=== PATIENT | male | born 1985 | race Caucasian/White ===

== ENCOUNTER → 2017-08-16 14:53 | Outpatient (CLI) | payer BC, SELFPAY ==
--- NOTE | 2017-08-16 15:04 | XR_ITS ---
XR chest 2V HISTORY: ITS.REASON: COUGH, CHILLS,FEVER ORDERING PHYSICIAN: Anson Vieyra MD PATIENT AGE: 31 years COMPARISON: 05/13/2016 FINDINGS: The cardiomediastinal silhouette and pulmonary vascularity are within normal limits. The lungs are clear without infiltrates, suspicious nodules, or pleural effusions. No acute bony abnormalities. IMPRESSION: Negative chest, no acute finding
== END ==
PROVIDERS: PCP Internal Medicine Adolescent Medicine; Visit Provider Internal Medicine Adolescent Medicine
DX: R05 Cough (principal); R50.9 Fever, unspecified
CPT/HCPCS: 71046

== ENCOUNTER 2018-09-12 15:30 | Outpatient (RCR) | payer BC, SELFPAY ==
--- NOTE | 2018-09-02 09:44 | [facility].PTOPEV ---
PT Outpatient Evaluation Rehab PT Outpatient Evaluation Start: 09/02/18 09:18 Freq: Status: Active Protocol: Document 09/02/18 09:18 CHELSEA (Rec: 09/02/18 09:44 CHELSEA [id number]) Electronically Signed By Wenceslao Alvarez, PT 09/02/18 09:18 Outpatient Therapy Subjective History Subjective History Pt reports insidious LBP beginning in 2017. Pt reports pain and s/s progressed w/radicular s/s down L LE to toes. Pt reports recent MRI has revealed 'two severely herniated discs in my low back'. Pt reports intermittent episodes of weakness in L LE as well. Chief Complaint Pain Paresthesia Weakness Symptom Type Ache Throb Sharp Dull Stabbing Burning Numbness Tingling Shooting Symptoms Relieved By Prescription Meds Symptoms Aggravated By Sitting Standing Bending/Stooping Physical Activity Walking Lifting Prior Functional Limitations Lifting Housework Current Functional Limitations Lifting Housework Standing Sitting Walking Bending/Stooping Symptom Description Constant but Variable Level of pain today (0-10) 8 Pain scale - at its best (0-10) 7 Pain scale - at its worst (0-10) 10 Lumbopelvic Eval Posture Thoracic Spine Posture Standing Position Neutral Lumbar Spine Posture Standing Position Flattened Assistive device Assistive Devices None / NA Gait Observation General Gait Pattern Observation Antalgic Gait Palapation tenderness left lumbar spinal tenderness Yes: 2/4 paraspinal tenderness Yes: 3/4 buttock tenderness Yes: 3/4 Lumbar/Sacral Palpation Findings Tenderness Muscle Guarding Accessory Movement L-spine Vertebrae Accessory Movements Central P/A Bruni that Elicit Symptoms L4 left L5
== END 2018-09-12 15:35 | disposition home or self-care (01) ==
LOC: PT 15:30
PROVIDERS: Visit Provider Internal Medicine Adolescent Medicine
DX: M54.42 Lumbago with sciatica, left side (principal)
CPT/HCPCS: 97010; 97012; 97014; 97110; 97163; G0283

== ENCOUNTER → 2021-09-16 19:36 | Outpatient (CLI) | payer BC, SELFPAY ==
[2021-09-16 19:54] LABS: Coronavirus 19, PCR Not Detected (NotDetected); Influenza A, PCR Not Detected (NotDetected); Influenza B, PCR Not Detected (NotDetected)
== END ==
PROVIDERS: PCP Internal Medicine Adolescent Medicine; Visit Provider Internal Medicine Adolescent Medicine
DX: Z20.822 Contact with and (suspected) exposure to COVID-19 (principal)
CPT/HCPCS: C9803; U0003; U0005

== ENCOUNTER → 2021-12-28 18:09 | Outpatient (CLI) | payer BC, SELFPAY | PROVIDERS: PCP Internal Medicine Adolescent Medicine; Visit Provider Internal Medicine Adolescent Medicine | DX: U07.1 COVID-19 (principal) | CPT/HCPCS: C9803; U0003; U0005 ==